=== PATIENT | female | born 1980 | race Caucasian/White ===

== ENCOUNTER 2020-06-20 14:47 | Emergency (ER) | payer OTHER ==
[~2020-06-20] VITALS: Ht 162.6 cm; Wt 95.0 kg
[2020-06-20 15:11] VITALS: TEMP 97.6
[2020-06-20 19:04] LABS: BASO % 0.6 % (0.0-2.0); EOS # 0.2 (0.0-0.7); EOS % 4.4 % (0-4.0); GRAN # 2.2 (1.4-6.5); GRAN % 46.2 % (42.2-75.2); HEMATOCRIT 33.4 % (37.0-47.0); HEMOGLOBIN 10.5 g/dl (12.5-16.0); LYMPH # 1.7 (1.2-3.4); LYMPH % 34.9 % (20.0-51.0); MEAN CELL VOLUME 90 fl (80.0-100.0); MEAN CORPUSCULAR HEMOGLOBIN 28 pg (27.0-31.0); MEAN CORPUSCULAR HGB CONC 31 g/dl (33.0-37.0); MEAN PLATELET VOLUME 9.8 fl (7.4-10.4); MONO # 0.7 (0.1-0.6); MONO % 13.7 % (1.7-9.3); PLATELET COUNT 269 K/mm3 (130-400); RED BLOOD COUNT 3.71 M/mm3 (4.10-5.30); REDCELL DISTRIBUTION WIDTH-CV 13.7 % (11.5-14.5)
[2020-06-20 19:15] LABS: ALBUMIN 3.6 gm/dL (3.5-5.0); BILIRUBIN,TOTAL 0.4 mg/dL (0.0-1.0); CALCIUM 8.9 mg/dL (8.4-10.2); CREATININE, serum 0.72 (0.52-1.25); POTASSIUM 3.8 mmol/L (3.4-5.0); TOTAL PROTEIN 6.5 gm/dL (6.4-8.2)
[2020-06-20] MEDS ORDERED: ENDOMETRIN100 MG VG (19:31)
[2020-06-20] MEDS ORDERED: SYNTHROID0.3 MG PO (19:32)
[2020-06-20 19:45] LABS: THYROID STIMULATING HORMONE 0.425 uIU/mL (0.465-4.680)
[2020-06-20 20:01] LABS: COLLECTION METHOD CLEAN CATCH
[2020-06-20 20:08] LABS: MUCOUS Present /lpf; PH 6 (5-8); URINE APPEARANCE Clear; URINE BACTERIA None Seen /hpf; URINE BILIRUBIN Negative (NEGATIVE); URINE BLOOD 3+ (NEGATIVE); URINE COLOR Straw; URINE GLUCOSE Negative (NEGATIVE); URINE KETONE Trace (NEGATIVE); URINE LEUKOCYTE ESTERASE Negative (NEGATIVE); URINE NITRATE Negative (NEGATIVE); URINE PROTEIN(semi-quant) Negative (NEGATIVE); URINE RBC 0-2 /hpf; URINE UROBILINOGEN Negative (NEGATIVE)
[2020-06-20] MEDS ORDERED: TRIAMC 0.025 80 TOP (20:40)
[2020-06-20 20:45] VITALS: BP 126/80; PULSE 83
== END 2020-06-20 20:45 | disposition home or self-care (01) ==
LOC: COL.ER 14:47
PROVIDERS: Nurse Practitioner
DX: R22.43 Localized swelling, mass and lump, lower limb, bilateral (principal)